=== PATIENT | female | born 1985 | race Caucasian/White ===

== ENCOUNTER 2020-02-25 14:11 | Outpatient (REF) | payer OTHER, SELFPAY ==
[2020-03-01 14:57] LABS: Patient Race White; SARS-CoV-2 RNA Undetected (Undetected); SARS-CoV-2 Specimen Source Nasal
== END 2020-02-25 14:31 ==
LOC: NCHCN 14:11
PROVIDERS: PCP Nurse Practitioner Primary Care; Visit Provider Family Medicine
DX: Z20.828 Contact with and (suspected) exposure to other viral communicable diseases (principal)
CPT/HCPCS: U0003

== ENCOUNTER 2021-01-04 10:46 | Outpatient (REF) | payer OTHER, SELFPAY ==
[2021-01-04 14:24] LABS: TSH (W/Ref FT4) 2.76 uIU/mL (0.36-3.74)
== END 2021-01-04 10:47 | disposition home or self-care (01) ==
LOC: NCHCN 10:46
PROVIDERS: PCP Nurse Practitioner Primary Care; Visit Provider Physician Assistant Medical
DX: Z00.00 Encounter for general adult medical examination without abnormal findings (principal); Z13.29 Encounter for screening for other suspected endocrine disorder
CPT/HCPCS: 84443

== ENCOUNTER 2021-01-05 10:19 | Outpatient (REF) | payer OTHER, SELFPAY ==
--- NOTE | 2021-01-04 09:00 | PAPFT_PTH ---
PATIENT: Vanessa Mcgarry LOC: [facility]#:[id number] AGE/SX: 35/F ROOM: RE01/05/[address]: Peter Mak : 1985 BED: DIS: 01/05/2021 SPEC #: [id number] RECD: 01/05/21 12:58 STATUS: MAYELIN RERosmery #: [id number] ROXANNA: 01/04/21 09:[address]: Peter Mak DEPT: [facility] Cytology RECD BY: Skylar Teixeira ENTERED: 01/05/21 12:58 SP TYPE: PAPFT OTHR DR: PATSY ZunigaP Tissues: 1 - CX/ENDOCX FOR PAP SMEARS Procedures: PAP THIN PREP/UVM Screening HPV DNA PROBE Comments: [id number]
[2021-01-06 18:55] LABS: COVID-19 RT-PCR UVMMC Result Negative (Negative)
== END 2021-01-05 10:20 | disposition home or self-care (01) ==
LOC: NCHCN 10:19
PROVIDERS: PCP Nurse Practitioner Primary Care; Visit Provider Physician Assistant Medical
DX: Z20.822 Contact with and (suspected) exposure to COVID-19 (principal); Z12.4 Encounter for screening for malignant neoplasm of cervix; Z11.51 Encounter for screening for human papillomavirus (HPV)
CPT/HCPCS: 88142; U0003; 87624

== ENCOUNTER 2021-01-10 09:52 | Outpatient (REF) | payer OTHER, SELFPAY ==
[2021-01-11 02:04] LABS: COVID-19 RT-PCR UVMMC Result Negative (Negative)
== END 2021-01-10 09:53 | disposition home or self-care (01) ==
LOC: NCHCN 09:52
PROVIDERS: PCP Nurse Practitioner Primary Care; Visit Provider Physician Assistant Medical
DX: Z20.822 Contact with and (suspected) exposure to COVID-19 (principal)
CPT/HCPCS: U0003

== ENCOUNTER 2021-03-03 15:38 | Outpatient (REF) | payer OTHER, SELFPAY ==
[2021-03-04 02:05] LABS: COVID-19 RT-PCR UVMMC Result Negative (Negative)
== END 2021-03-03 15:39 | disposition home or self-care (01) ==
LOC: NCHCN 15:38
PROVIDERS: PCP Nurse Practitioner Primary Care; Visit Provider Internal Medicine
DX: Z20.822 Contact with and (suspected) exposure to COVID-19 (principal)
CPT/HCPCS: U0003

== ENCOUNTER 2021-03-10 10:30 | Outpatient (REF) | payer OTHER, SELFPAY ==
[2021-03-11 01:17] LABS: COVID-19 RT-PCR UVMMC Result Negative (Negative)
== END 2021-03-10 10:31 | disposition home or self-care (01) ==
LOC: NCHCN 10:30
PROVIDERS: PCP Nurse Practitioner Primary Care; Visit Provider Family Medicine
DX: Z20.822 Contact with and (suspected) exposure to COVID-19 (principal)
CPT/HCPCS: U0003

== ENCOUNTER 2021-03-27 17:46 | Outpatient (REF) | payer OTHER, SELFPAY ==
[2021-03-27 15:55] LABS: Abs Immature Grans 0.02 10^3/uL (0.0-0.06); Absolute Basophil Count 0.06 10^3/uL (0.0-0.2); Absolute Eosinophil Count 0.19 10^3/uL (0.0-0.7); Absolute Lymphocyte Count 2.94 10^3/uL (1.2-3.4); Absolute Neutrophil Count 4.53 10^3/uL (1.2-6.7); Basophils % 0.7; Eosinophils % 2.3; Immature Grans % 0.2; Lymphocytes % 35.7; MCHC 34.2 % (32.0-36.0); MCV 93.6 fL (80-95); MPV 9.1 fL (8.0-11.0); Monocytes % 6.1; Nucleated RBC 0 %; Platelet Count 301 10^3/uL (130-400); RBC 4.06 10^6/uL (3.93-5.22); RDW 11.6 % (11.7-14.6); RDW-SD 39.9 fL; WBC 8.24 10^3/uL (4.4-10.8)
[2021-03-27 16:21] LABS: ALT 32 U/L (14-59); AST 21 U/L (15-37); Albumin 3.7 g/dL (3.4-5.0); Alkaline Phosphatase 76 U/L (46-116); Anion Gap 5.5 mmol/L (3-11); BUN 14 mg/dL (7-18); Bilirubin, Total 0.3 mg/dL (0.2-1.0); C-Reactive Protein 0.11 mg/dL (0.0-0.3); CO2 29.5 mmol/L (21.0-32.0); CREATININE 0.8 mg/dL (0.55-1.02); Calcium 8.4 mg/dL (8.5-10.1); Chloride 103 mmol/L (98-107); Glucose 113 mg/dL (74-106); Potassium 3.7 mmol/L (3.5-5.1); Sodium 138 mmol/L (136-145); TSH (W/Ref FT4) 1.95 uIU/mL (0.36-3.74); Total Protein 7.4 g/dL (6.4-8.2)
== END 2021-03-27 17:47 | disposition home or self-care (01) ==
LOC: LBN 17:46
PROVIDERS: PCP Nurse Practitioner Primary Care; Visit Provider Surgery
DX: R19.8 Other specified symptoms and signs involving the digestive system and abdomen (principal); Z20.9 Contact with and (suspected) exposure to unspecified communicable disease
CPT/HCPCS: 80053; 84443; 85025; 86140

== ENCOUNTER 2021-06-07 01:17 | Outpatient (CLI) | payer OTHER, SELFPAY ==
[2021-06-07 11:45] LABS: Source Nasal/Nares
[2021-06-07 13:54] LABS: COVID-19 PCR Negative (Negative)
== END 2021-06-07 01:18 | disposition home or self-care (01) ==
LOC: LBO 01:17
PROVIDERS: PCP Nurse Practitioner Primary Care; Visit Provider Surgery
DX: Z20.822 Contact with and (suspected) exposure to COVID-19 (principal)
CPT/HCPCS: 87635

== ENCOUNTER 2021-06-09 07:07 | Day surgery (SDC) | payer OTHER, SELFPAY ==
--- NOTE | 2021-06-08 22:15 | W.COLOREPORT ---
Colonoscopy Report Date of procedure: 06/09/21 Pre-op diagnosis general: change in bowels/CR toxin exposure in Post-op diagnosis procedure note: other (normal) Surgeon: Aspen Carmen Anesthesia Type: General:No Airway Estimated blood loss (mL): 2 Pathology: other Complications: None Disposition: same day Prep: Miralax/Dulcolax Retraction Time: 9 mins Procedure Description: After informed consent was obtained the patient was taken to the procedure room and placed in a left decubitous position. Monitors were applied and a time out was done. The patients name, date of , procedure, allergies to medications and metal in their body was reviewed. The patient was then sedated. Once sedated and comfortable a rectal exam was done. External exam was normal. Internal exam revealed a normal sphincter tone and no palpable masses. The scope was then introduced and retrofelexed. No internal hemorrhoids were identified. The scope was then advanced to the cecum w/out difficulty. The TI and appendiceal orifice were identified. The prep wasBBPS-2 in all quadrants. The scope was then slowly retracted over 9 minutes back into the rectum. There are no polyps, AVMs, or diverticula visualized today. The mucosa is pink and healthy. Random biopsies are taking 70/50/30 centimeters and in the rectum. All specimens are retrieved and no bleeding is noted. scope was removed and the patient was woken up and taken back to Same day surgery in stable condition. The patient tolerated the procedure well and there were no immediate complications. Follow up: The patient should repeat age 43, unless they develop changes in bowel habits or other new gastrointestinal complaints.
--- NOTE | 2021-06-08 22:16 | PDOC.DSDIS_ITS ---
Discharge Plan Disposition Patient Disposition: HOME Condition: Good Discharge Details Reason For Visit: colonoscopy Attending Provider: Aspen Carmen Primary Care Provider: Peter Mak Home Meds and New Rx's Prescriptions: No Action polyethylene glycol 3350 17 gram/dose powder 238 g PO ONCE Qty: 238 0RF Rx Instructions: take per colonoscopy instructions bisacodyl [Dulcolax (bisacodyl)] 5 mg tablet,delayed release (DR/EC) 5 mg PO ONCE Qty: 4 0RF Rx Instructions: take per colonoscopy instructions loratadine [Claritin] 10 mg tablet 10 mg PO DAILY 0RF Discharge Instructions Additional Instructions: DSU Colonoscopy Post- Op Instructions Instructions for Everyone who is given Anesthesia: For your safety, please do the following for the next twenty-four (24) hours: *Do Not operate a motor vehicle (car, truck, motorcycle, etc.) *Do Not drink alcoholic beverages or use any recreational drugs for the first 24 hours or while taking pain medications. The medications in your body may have a reaction that can be dangerous. *Do Not make any important decisions or sign any important papers. Findings:normal bx taken Follow up: My office will send a letter w/ biopsy results in 2-3wks. 1. No lifting over 20 pounds or strenuous activity for the first 24 hours after your procedure. After 24 hours there are no restrictions on your activity but you may feel fatigued for a few days. 2. After you arrive home you may have a light meal and return to your normal diet as you can tolerate it without feeling sick to your stomach. 3. You may have a bloated, gaseous feeling in your belly (abdomen) after a colonoscopy. Passing gas and belching will help. Walking or lying down on your left side with your knees flexed may relieve the discomfort. Call the office at [phone] (Office) or [phone] (Hospital) right away if you notice any of the following: a.Vomiting of blood or ?coffee ground stools?. b.Rectal bleeding 1Tbsp, blood clots or continuous bleeding. c.Severe belly (abdominal) pain. d.A hard distended belly (abdomen) and an inability to pass gas. 4. Please don?t expect to have a normal BM (bowel movement) for 2-3 days after your procedure. 5. If there are questions regarding the findings of your procedure, please contact your doctor 6. If you are unable to contact your doctor with a problem, contact the hospital at [phone]. 7. Continue all your regular medications unless directed otherwise. I understand the above instructions and have no questions. Signature of Patient or Adult Escort Name of Responsible Adult Escort Signature of Nurse Date/Time Activity:: see above Diet:: see above Discharge Orders Discharge Orders: Discharge Order (Routine); Ordered 06/08/21 Ordered By: Aspen Carmen
[2021-06-09 07:19] VITALS: BP 119/80; PULSE 77; RESP 16; TEMP 36.6; O2SAT 100
[2021-06-09] MEDS: Lactated Ringers 1,000 ML 80 ML IV (07:39)
--- NOTE | 2021-06-09 08:09 | W.ANESPRE ---
General Info Date of Service Date Performed: 06/09/21 Height: 5 ft 2 in Weight: 72.8 kg Body Mass Index (BMI): 29.3 Surgical Procedure: Operation Date: 06/09/21 08:20 Proposed Procedure Side Surgeon abraham Carmen, DO Meds Allergies and Home Medications Allergies Allergy/AdvReac Type Severity Reaction Status Date / Time No Known Drug Allergies Allergy Unverified 06/09/21 07:28 lobster Allergy Severe vomiting Uncoded 06/09/21 07:28 Home Medication Medication Instructions Recorded loratadine 10 mg tablet (Claritin) 10 mg PO DAILY 02/16/21 bisacodyl 5 mg tablet,delayed 5 mg PO ONCE #4 tab 05/29/21 release (Dulcolax (bisacodyl)) polyethylene glycol 3350 17 238 g PO ONCE #238 g 05/29/21 gram/dose oral powder Current Visit Medications: Current Medications Generic Name Dose Route Start Last Admin Trade Name Freq PRN Reason Stop Dose Admin Hyoscyamine Sulfate 0.125 mg 06/08/21 22:14 Hyoscyamine 0.125 Mg Sl/Oral/Chew SL DIRECTED PRN Ringer's Solution 1,000 mls @ 80 mls/hr 06/09/21 06:00 06/09/21 07:39 IV 07/08/21 23:59 80 mls/hr INFUSION ANDREY Administration IV Miscellaneous Supplies 1 each 06/09/21 06:00 Iv Access IV 07/08/21 23:59 DIRECTED ANDREY Ondansetron HCl 4 mg 06/08/21 22:14 Ondansetron 4 Mg/2 Ml Vial IVP Q4H PRN PRN Nausea / Vomiting Sodium Chloride 0 ml 06/09/21 06:00 Normal Saline Flush 10 Ml Syr IV 07/08/21 23:59 PRN PRN Sodium Chloride 0 ml 06/09/21 06:00 Normal Saline 10 Ml Vial IJ 07/08/21 23:59 DIRECTED PRN Sterile Water 0 ml 06/09/21 06:00 Water,Injection,Sterile 10 Ml Vial IJ 07/08/21 23:59 DIRECTED PRN PFSH Active Problems Active Problems: Problem Status Onset Code Lesion of vulva N90.89 Chronic exposure to inhaled toxin Z77.29 Encounter for diagnostic colonoscopy due to change in bowel habits R19.4 Medical History Medical History Allergic rhinitis Exposure to communicable disease Irregular bowel habits Medical History Comments:: Pt. states that her father has a cytochrome P450 deficiency and processes anesthesia faster. Tobacco Smoking/Tobacco Use Status: Never Alcohol Alcohol Intake: current Alcohol intake frequency: a few times a month Substance Use Substance use: Never Substance use type: does not use Vital Signs and Lab Results Vital Signs Most Recent Vital Signs in EMR: Most Recent Vital Signs Temp Pulse Resp BP Pulse Ox 36.6 C 77 16 119/80 100 06/09/21 07:19 06/09/21 07:19 06/09/21 07:19 06/09/21 07:19 06/09/21 07:19 Point of Care Results Point of Care Results: POC- Test(urine) Negative 06/09/21 07:51 Lab Results Blood Type / Crossmatch: No Data to Display Complete Blood Count: No Data to Display Complete Metabolic Panel: No Data to Display Liver Function Panel: No Data to Display Coagulation Panel: No Data to Display Cardiac Panel: No Data to Display Arterial Blood Gas: No Data to Display Venous Blood Gas: No Data to Display Pancreas Panel: No Data to Display Thyroid Panel: No Data to Display Infectious Disease: Coronavirus (COVID-19)(PCR) Negative (Negative) 06/07/21 08:32 06/07/21 Coronavirus 2019 Source Nasal/Nares 06/07/21 08:32 06/07/21 Blood Cultures: No Data to Display Toxicology Panel: No Data to Display Panel: No Data to Display Anesthesia Assessment and Plan Anesthesia History Personal History: No History of Anesthesia Complications Family History: Other Exercise Tolerance Exercise Tolerance: Metabolic Equivalents>4 Pertinent Negatives Pertinent Negatives: No Symptoms of GERD, No Major Cardiovascular Symptoms or Complaints, No Major Pulmonary Symptoms or Complaints and No History of CVA/TIA Cardiac & Pulmonary Exam Cardiac Exam: Normal S1/S2 Heart Sounds Pulmonary Exam: Clear Bilateral Breath Sounds Implantable Cardiac Device Does patient have a Pacemaker or an ICD?: No Airway Exam Known Difficult Airway: No Mallampati Class: 1 Mouth Opening: Normal (> 3cm) Thyromental Distance: Greater than 3 cm Neck Range of Motion: Full ROM Neck Circumference: Normal Teeth Condition: Normal Dentition ASA Classification ASA Score: ASA 2 Emergency Case?: No NPO Status NPO Status: NPO Clears >2 hours, Solids >8 hours Status Status: Negative HCG Anesthesia Plan Resuscitation Status: Full Code Anesthesia Technique: General Anesthesia Airway Planned: Natural Airway Monitors Used: Standard Monitors
[2021-06-09 08:10] VITALS: BMI 29.3
--- NOTE | 2021-06-09 08:30 | BOWEL_PTH ---
PATIENT: Vanessa Mcgarry LOC: [facility] U#:[id number] AGE/SX: 35/F ROOM: RE06/09/[address]: Aspen Carmen : 1985 BED: DIS: 06/09/2021 SPEC #: [id number] RECD: 06/09/21 11:20 STATUS: MAYELIN RE #: [id number] ROXANNA: 06/09/21 08:[address]: Aspen Carmen DEPT: Surgical Specimen RECD BY: Skylar Teixeira ENTERED: 06/09/21 11:22 SP TYPE: Bowel OTHR DR: Peter Mak Tissues: 1 - BIOPSY BOWEL 2 - BIOPSY BOWEL 3 - BIOPSY BOWEL 4 - BIOPSY BOWEL 5 - BIOPSY BOWEL Procedures: GROSS AND MICRO LEVEL 4 Comments: [id number]
--- NOTE | 2021-06-09 09:01 | W.ANESPOSTOP ---
Postoperative Evaluation Date, Time and Location Date Performed: 06/09/21 Time Performed: 09:01 Patient Location: Day Surgery Unit Vital Signs Most Recent Imported Vital Signs: Most Recent Vital Signs Temp Pulse Resp BP Pulse Ox 36.6 C 77 16 119/80 100 06/09/21 07:19 06/09/21 07:19 06/09/21 07:19 06/09/21 07:19 06/09/21 07:19 Most Recent Manually Entered Vital Signs: Adult Blood Pressure: 109/67 Heart Rate: 90 Respirations: 10 Oxygen Saturation (%): 100 Temperature (C): 36.3 C Pain Score (0-10 Scale): 0 Pain Score Most Recent Pain Score: Most Recent Pain Score Pain Level 0 06/09/21 07:19 Assessment Mental Status: Awake (Alert & Oriented to Patient Baseline) Airway and Respiratory Function: Patent airway with normal (patient baseline) respiratory exam Cardiovascular Function: Hemodynamically Stable Hydration Status: Adequately Hydrated Nausea & Vomiting: No Nausea or Vomiting Pain: Pt. Denies Any Pain Peripheral Nerve Block: Patient did not receive a nerve block
[2021-06-09 09:03] VITALS: BP 109/67; PULSE 90; RESP 10; TEMPC 36.3; O2SAT 100
[2021-06-09 09:33] VITALS: BP 102/72; PULSE 74; RESP 16; TEMP 36.5; O2SAT 100
[2021-06-12 13:47] LABS: Galactose-alpha-1,3 IgE <0.10 kU/L (<0.70)
== END 2021-06-09 09:55 | disposition home or self-care (01) ==
LOC: SUR 07:07
PROVIDERS: PCP Physician Assistant Medical; Visit Provider Surgery
PROC: 0DJD8ZZ Inspection of Lower Intestinal Tract, Via Natural or Artificial Opening Endoscopic (ICD-10-PCS; CPT 45378; principal; 2021-06-09 08:15)
DX: R19.4 Change in bowel habit (principal); J30.9 Allergic rhinitis, unspecified; Z77.29 Contact with and (suspected) exposure to other hazardous substances; K63.89 Other specified diseases of intestine
CPT/HCPCS: 45380; 36415; 81025; 86003; 88305; J2001

== ENCOUNTER 2021-12-07 12:38 | Outpatient (CLI) | payer OTHER, SELFPAY ==
[2021-12-07 11:37] LABS: D-Dimer 216 ng/mlFEU (<500)
== END 2021-12-07 12:39 | disposition home or self-care (01) ==
LOC: LBO 12:47
PROVIDERS: PCP Physician Assistant Medical; Visit Provider Nurse Practitioner Family
DX: R07.89 Other chest pain (principal)
CPT/HCPCS: 36415; 85379

== ENCOUNTER → 2023-03-20 00:58 | Outpatient (CLI) | payer BC, SELFPAY ==
--- NOTE | 2023-03-20 07:30 | DI.MRI_ITS ---
Exam(s) MR BRAIN WO EXAM: MR BRAIN WO CLINICAL HISTORY: R trigeminal neuralgia,g50.0 TECHNIQUE: Multiplanar multisequence MRI of the brain was performed. COMPARISON: No exams were available for comparison FINDINGS: CEREBRAL PARENCHYMA: There is no evidence of intracranial hemorrhage, mass effect, or shift of midline structures. There are no extra-axial fluid collections. Ventricles are not enlarged or shifted. There is no significant focal signal abnormality in the cerebellar hemispheres nor within the ashley, m idbrain, and thalami. There is no abnormal signal abnormality in the periventricular white matter. There is no significant focal signal abnormality evident on diffusion imaging to suggest acute ischem ic event. ADDITIONAL SUB MM SEQUENCES THROUGH BRAINSTEM: Normal appearance of the 7th and 8th cranial nerves wi thin both internal auditory canals. Both trigeminal-5th cranial nerves appear unremarkable as they e xit the ashley and head anteriorly towards Meckel's cave. No mass seen within the 5th nerves and no ob vious external compression. There does not appear to be an obvious aberrant vascular loop in this re gion. Basilar artery is midline. No aneurysm. The superior cerebellar arteries do not appear to im pinge upon the trigeminal nerves. PITUITARY GLAND: No mass nor parasellar abnormality. No obvious abnormality in the cavernous sinuses. FLOW VOIDS: The expected flow void are noted. No evidence of obvious aneurysm nor obvious vascular ma lformation. PARANASAL SINUSES: There is unilateral mucosal thickening in the floor of the right maxillary sinus h aving appearance of post inflammatory retention cysts. No associated fluid level. Other paranasal s inuses are clear. Mastoid air cells are clear. ORBITS: No obvious findings. IMPRESSION: No significant intracranial findings on this noninfused MRI scan of the brain. No evidence of a mass within nor impingement upon the trigeminal nerves. The superior cerebellar art eries do not appear to contact the trigeminal nerves in this patient apparently has trigeminal neural marisela symptoms. DATA REPOSITORY:
== END ==
PROVIDERS: PCP Physician Assistant Medical; Visit Provider Psychiatry & Neurology Neurology
DX: G50.0 Trigeminal neuralgia (principal)
CPT/HCPCS: 70551

== ENCOUNTER 2023-07-10 17:04 | Outpatient (REF) | payer BC, SELFPAY ==
[2023-07-10 20:49] LABS: Hemoglobin A1C 5.2 % (<5.7)
[2023-07-10 20:57] LABS: Calculated LDL 214 mg/dL (<100); Cholesterol 300 mg/dL (<200); HDL Cholesterol 70 mg/dL (40-60); TSH (W/Ref FT4) 4.06 uIU/mL (0.36-3.74); Triglyceride 80 mg/dL (<150)
[2023-07-10 21:16] LABS: FREE T4 0.87 ng/dL (0.76-1.46)
== END 2023-07-10 17:05 | disposition home or self-care (01) ==
LOC: NCHCN 17:04
PROVIDERS: PCP Physician Assistant Medical; Referring Provider Physician Assistant Medical; Visit Provider Physician Assistant Medical
DX: Z00.00 Encounter for general adult medical examination without abnormal findings (principal)
CPT/HCPCS: 80061; 83036; 84439; 84443

== ENCOUNTER → 2023-08-07 01:44 | Outpatient (CLI) | payer BC, SELFPAY ==
--- NOTE | 2023-08-07 | DI.US_ITS ---
Exam(s) US PELVIS TRANSVAGINAL EXAM: US PELVIS TRANSVAGINAL CLINICAL HISTORY: N94.6 Dysmenorrhea, unspecified. TECHNIQUE: Transabdominal and transvaginal pelvic ultrasound was performed using standard protocol. COMPARISON: No exams were available for comparison FINDINGS: UTERUS: Position: Anteverted. Size: 7.9 long by 2.7 AP by 3.8 transverse cm Endometrium: 0.3 cm. Normal for patient's menstrual status. Myometrium: There is a 0.5 x 0.6 cm hypoechoic mass in the posterior body of the uterus likely reflec ting a small fibroid. Cervix: Nabothian cyst. OVARIES: Right: 2.3 x 1.5 x 2.2 cm Cyst or mass: No suspicious cystic or solid masses. Left: cm Cyst or mass: No suspicious cystic or solid masses. DOPPLER: Color: Symmetric and uniform flow to both ovaries. CUL-DE-SAC: Free fluid: None. Other: None. IMPRESSION: 1. Small uterine fibroid. 2. Unremarkable endometrial stripe. 3. Unremarkable bilateral ovaries. DATA REPOSITORY:
--- NOTE | 2023-08-07 | DI.MAMMO_ITS ---
Exam(s) MAMMO SCREENING EXAM: MAMMO SCREENING CLINICAL HISTORY: Z12.31 Screening mammogram for malignant neoplasm of breast TECHNIQUE: Bilateral full field digital CC and MLO mammographic images were obtained with 3D tomosyn thesis and utilizing computer aided detection (CAD). COMPARISON: This is a baseline examination. FINDINGS: Masses/Architectural Distortion: None seen. Microcalcifications: No suspicious pleomorphic-type are seen. Skin Thickening/Nipple Retraction: None. IMPRESSION: 1. No evidence for malignancy at this time. 2. Unless there is more urgent need, screening mammography is recommended, as per [employer] guidelines. BI-RADS Category 1 - Negative Breast Density - Category C - Heterogeneously dense Breast density category C or D implies that the patient has dense breast tissue. Dense breast tissue is very common and is not abnormal but dense breast tissue can make it harder to find cancer on a ma mmogram. Also, dense breast tissue may increase their breast cancer risk. This information about the result of the mammogram report was provided to the patient to raise their awareness. Use this report when you speak with the patient about their risks for breast cancer, which includes their family hist ory. At that time, you may recommend for more screening tests (Ultrasound or MRI) as they might be us eful based on their risk. A negative radiographic report should not delay biopsy if a dominant or clinically suspicious mass is present. Up to ten percent of cancers are not identified on mammography. A negative report may reinforce clinical impression. Adenosis and dense breasts may obscure an underlying neoplasm. False positive reports average 6 to 10%. Patient will receive a letter notifying them of these results.
== END ==
PROVIDERS: PCP Physician Assistant Medical; Visit Provider Physician Assistant Medical
DX: Z12.31 Encounter for screening mammogram for malignant neoplasm of breast (principal); N94.6 Dysmenorrhea, unspecified
CPT/HCPCS: 77063; 77067; 76830; 76856

== ENCOUNTER 2023-09-12 21:53 | Outpatient (REF) | payer BC, SELFPAY ==
[2023-09-12 22:22] LABS: ALT 35 U/L (14-59); AST 18 U/L (15-37); Albumin 4.1 g/dL (3.4-5.0); Alkaline Phosphatase 84 U/L (46-116); Bilirubin, Total 0.3 mg/dL (0.2-1.0); Calculated LDL 113 mg/dL (<100); Cholesterol 220 mg/dL (<200); HDL Cholesterol 81 mg/dL (40-60); TSH 1.98 uIU/Ml (0.36-3.74); Total Protein 7.3 g/dL (6.4-8.2); Triglyceride 130 mg/dL (<150)
[2023-09-12 22:39] LABS: Bilirubin, Direct 0.1 mg/dL (0.0-0.2); FREE T4 0.89 ng/dL (0.76-1.46)
[2023-09-13 18:27] LABS: Thyroglobulin Antibody <15 U/mL (<=60)
[2023-09-13 18:31] LABS: Thyroperoxidase Antibody <28 U/mL (<=60)
== END 2023-09-12 21:54 | disposition home or self-care (01) ==
LOC: NCHCN 21:53
PROVIDERS: PCP Physician Assistant Medical; Visit Provider Physician Assistant Medical
DX: E78.5 Hyperlipidemia, unspecified (principal); R94.6 Abnormal results of thyroid function studies
CPT/HCPCS: 80061; 80076; 84439; 84443; 86376; 86800

== ENCOUNTER 2024-08-19 17:32 | Outpatient (REF) | payer BC, SELFPAY ==
[2024-08-19 19:42] LABS: Abs Immature Grans 0.02 10^3/uL (0.0-0.06); Absolute Basophil Count 0.05 10^3/uL (0.0-0.2); Absolute Lymphocyte Count 2.63 10^3/uL (1.2-3.4); Absolute Monocyte Count 0.56 10^3/uL (0.1-0.8); Absolute Neutrophil Count 4.82 10^3/uL (1.2-6.7); Basophils % 0.6 %; Eosinophils % 1.2 %; HCT 37.5 % (36.0-46.0); HGB 12.8 g/dL (11.2-15.7); Immature Grans % 0.2 %; Lymphocytes % 32.2 %; MCH 32.8 pg (27.0-33.0); MCHC 34.1 % (32.0-36.0); MCV 96 fL (80-95); MPV 9.2 fL (8.0-11.0); Monocytes % 6.8 %; Platelet Count 344 10^3/uL (130-400); RDW 11.9 % (11.7-14.6); RDW-SD 41.4 fL; WBC 8.18 10^3/uL (4.4-10.8)
[2024-08-19 20:26] LABS: ALT 33 U/L (14-59); AST 25 U/L (15-37); Albumin 4.1 g/dL (3.4-5.0); Alkaline Phosphatase 77 U/L (46-116); Anion Gap 7.1 mmol/L (3-11); BUN 8 mg/dL (7-18); Bilirubin, Total 0.4 mg/dL (0.2-1.0); CO2 26.9 mmol/L (21.0-32.0); CREATININE 0.8 mg/dL (0.55-1.02); Calculated LDL 141 mg/dL (<100); Chloride 104 mmol/L (98-107); Cholesterol 221 mg/dL (<200); Estimated GFR 94.87 (mL/min/1.73m2); Glucose 93 mg/dL (74-106); HDL Cholesterol 65 mg/dL (>or=50); Potassium 4.1 mmol/L (3.5-5.1); Sodium 138 mmol/L (136-145); TSH (W/Ref FT4) 1.73 uIU/mL (0.36-3.74); Total Protein 7.2 g/dL (6.4-8.2); Triglyceride 75 mg/dL (<150); Vitamin D 25 Total 28 ng/mL (30-100)
[2024-08-19 20:30] LABS: Folate > 20.0 ng/mL (8.6-20.0); Vitamin B12 > 2000 pg/mL (193-986)
== END 2024-08-19 17:33 | disposition home or self-care (01) ==
LOC: NCHCN 17:32
PROVIDERS: PCP Physician Assistant Medical; Visit Provider Physician Assistant Medical
DX: Z00.00 Encounter for general adult medical examination without abnormal findings (principal); E78.5 Hyperlipidemia, unspecified; R79.89 Other specified abnormal findings of blood chemistry; G50.0 Trigeminal neuralgia
CPT/HCPCS: 80053; 80061; 82306; 82607; 82746; 84443; 85025

== ENCOUNTER 2024-10-14 01:59 | Outpatient (CLI) | payer BC, SELFPAY ==
--- NOTE | 2024-10-14 | DI.MAMMO_ITS ---
Exam(s) MAMMO SCREENING EXAM: MAMMO SCREENING CLINICAL HISTORY: SCREENING, Z12.31 TECHNIQUE: Mammograms were interpreted according to the usual protocol including computer analysis with CAD system, tomosynthesis and C-view imaging. COMPARISON: 2023 FINDINGS: The breasts are composed of heterogeneously dense fibroglandular densities, Breast Density category C. No suspicious masses or suspicious microcalcifications are seen. No skin thickening or abnormal axillary lymph nodes are seen. There has been no significant change from prior exams. IMPRESSION: BI-RADS Category 1, Negative mammogram. Yearly screening mammography is recommended. Breast Density: Category C - The breasts are heterogeneously dense, which may obscure small masses. Breast density Category C or D implies that the patient has dense breast tissue. Dense breast tissue can make it harder to find cancer on a mammogram. Dense breast tissue is also associated with an increased risk of breast cancer. This information about the result of the mammogram report was provided to the patient to raise their awareness. Use this report when you speak with the patient about their risks for breast cancer, which includes their family history. At that time, you may recommend additional screening tests (Ultrasound or MRI) as these tests may add significant information. A negative radiographic report should not delay biopsy if a dominant or clinically suspicious mass is present. Up to ten percent of cancers are not identified on mammography. A negative report may reinforce clinical impression. Adenosis and dense breasts may obscure an underlying neoplasm. False positive reports average 6 to 10%.
== END 2024-10-14 02:19 ==
PROVIDERS: PCP Physician Assistant Medical; Visit Provider Physician Assistant Medical
DX: Z12.31 Encounter for screening mammogram for malignant neoplasm of breast (principal); R92.333 Mammographic heterogeneous density, bilateral breasts
CPT/HCPCS: 77063; 77067

== ENCOUNTER 2024-11-26 10:28 | Outpatient (REF) | payer BC, SELFPAY ==
[2024-11-26 18:37] LABS: ALT 85 U/L (14-59); AST 45 U/L (15-37); Albumin 4.1 g/dL (3.4-5.0); Alkaline Phosphatase 77 U/L (46-116); Anion Gap 9.8 mmol/L (3-11); BUN 11 mg/dL (7-18); Bilirubin, Total 0.6 mg/dL (0.2-1.0); CO2 27.2 mmol/L (21.0-32.0); Calcium 8.7 mg/dL (8.5-10.1); Calculated LDL 103 mg/dL (<100); Chloride 104 mmol/L (98-107); Cholesterol 171 mg/dL (<200); Estimated GFR 72.58 (mL/min/1.73m2); Glucose 85 mg/dL (74-106); HDL Cholesterol 56 mg/dL (>or=50); Potassium 4.3 mmol/L (3.5-5.1); Sodium 141 mmol/L (136-145); Total Protein 7.3 g/dL (6.4-8.2); Triglyceride 63 mg/dL (<150)
== END 2024-11-26 10:29 | disposition home or self-care (01) ==
LOC: NCHCN 10:28
PROVIDERS: PCP Physician Assistant Medical; Visit Provider Family Medicine
DX: Z00.00 Encounter for general adult medical examination without abnormal findings (principal)
CPT/HCPCS: 80053; 80061

== ENCOUNTER 2025-01-01 10:05 | Outpatient (REF) | payer BC, SELFPAY ==
[2025-01-01 14:36] LABS: ALT 39 U/L (14-59); AST 23 U/L (15-37); Albumin 4.0 g/dL (3.4-5.0); Alkaline Phosphatase 72 U/L (46-116); Bilirubin, Direct 0.1 mg/dL (0.0-0.2); Bilirubin, Total 0.4 mg/dL (0.2-1.0); GGT 21 U/L (5-55); Total Protein 7.0 g/dL (6.4-8.2)
[2025-01-04 18:45] LABS: Hepatitis A Antibody IgM Negative (Negative); Hepatitis C Ab w Rflx HCV PCR Negative (Negative)
== END 2025-01-01 10:06 | disposition home or self-care (01) ==
LOC: NCHCN 10:05
PROVIDERS: PCP Physician Assistant Medical; Visit Provider Physician Assistant Medical
DX: R79.89 Other specified abnormal findings of blood chemistry (principal)
CPT/HCPCS: 80076; 86704; 86709; 86803; 87340; 82977